=== PATIENT | male | born 1975 | race Caucasian/White ===

== ENCOUNTER 2018-11-24 13:03 | Inpatient (IN) | payer OTHER ==
[~2018-11-24] VITALS: Ht 289.6 cm; Wt 74.9 kg
--- NOTE | 2018-11-24 13:22 | NUR ---
PT SENT FROM [facility] FOR OPEN FX AND REQUESTING ORTHO CONSULT. INFORMED PT WE DO NOT HAVE ORTHO HERE. PT WOULD NEED TO GO TO [facility] OR [facility]. INQUIRED IF PT WISH TO STAY AT [facility]. PT VERBALIZED HE WILL GO TO [facility] OR [facility] INSTEAD. PT AMBULATED OUT OF ED WITH NAD.
[2018-11-24 13:47] VITALS: Ht 289.6 cm; Wt 74.9 kg
--- NOTE | 2018-11-24 14:02 | NUR ---
PT BIB SELF C/C LT INDEX FX WAS REFERRED FROM [facility] DR POWELL AT BEDSIDE TO [facility]
[2018-11-24 15:24] LABS: BASOPHIL % 0.3 % (0-2); PLATELET COUNT 212 x10^3mcL (130-400); RED CELL DISTRIBUTION WIDTH 12.8 % (11.5-14.5)
--- NOTE | 2018-11-24 15:25 | NUR ---
PT DENIES DISCOMFORT
[2018-11-24 15:29] LABS: CALCIUM 9.2 mg/dL (8.5-10.1); CHLORIDE SERUM 103 mmol/L (98-107); CREATININE SERUM 0.8 mg/dL (0.7-1.3); GFR1 > 60 mL/min; GLUCOSE SERUM 134 mg/dL (74-106); POTASSIUM SERUM 3.7 mmol/L (3.5-5.1); SODIUM SERUM 140 mmol/L (136-145)
[2018-11-24 15:34] LABS: ALBUMIN 4.1 g/dL (3.4-5.0); ALKALINE PHOSPHATASE 89 U/L (46-116); ALT/SGPT 33 U/L (16-63); AST/SGOT 13 U/L (15-37); BILIRUBIN TOTAL 0.42 mg/dL (0.20-1.00); TOTAL PROTEIN, SERUM 7.9 g/dL (6.4-8.2)
[2018-11-24 16:07] LABS: MAGNESIUM 1.8 mg/dL (1.8-2.4); PHOSPHOROUS 3.6 mg/dL (2.5-4.9)
--- NOTE | 2018-11-24 16:24 | NUR ---
PT ADMIT TO MS GAVE REPORT TO MARIA LUISA
--- NOTE | 2018-11-24 16:52 | NUR ---
PLEASE ENTER FULL NAMES OF SHODER FILLER/RN Patient data collected by (SHODER FILLER):ISRAEL ESTEBAN Assessment reviewed and completed by (RN):CROW PARHAM
[2018-11-24] MEDS ORDERED: METFORMIN HYDR500 M1 PO (17:31)
[2018-11-24 18:27] VITALS: BP 126/86
--- NOTE | 2018-11-24 18:56 | NUR ---
PT REPORTS PAIN 6/10 AFTER ADMINISTRATION OF NORCO. PT STABLE AT THIS TIME. US AT BEDSIDE. WILL CONTINUE TO MONITOR AND ENDORSE CARE TO SURGICAL FORCEPS FABRICATOR.
[2018-11-24 21:37] VITALS: BP 122/77
--- NOTE | 2018-11-24 21:42 | NUR ---
Awake and verbally responsive. No respiratory distress noted on room air. Denies n/v. Soreness to left hand but denies need for pain med at this time. Left hand with edema and advised to keep elevated. Dressing intact. NPO after midnight per Dr. Scruggs for possible surgery tomorrow. Will cont.to monitor. Call light within reach.
--- NOTE | 2018-11-25 04:23 | NUR ---
Afebrile. Remained NPO status for possible surgery today. Left hand elevated on pillow. (+)cms. In no apparent distress.
[2018-11-25 06:07] VITALS: BP 133/88
[2018-11-25 07:15] LABS: CALCIUM 8.4 mg/dL (8.5-10.1); CHLORIDE SERUM 105 mmol/L (98-107); CREATININE SERUM 0.7 mg/dL (0.7-1.3); GFR1 > 60 mL/min; GLUCOSE SERUM 137 mg/dL (74-106); POTASSIUM SERUM 3.7 mmol/L (3.5-5.1); SODIUM SERUM 142 mmol/L (136-145)
--- NOTE | 2018-11-25 07:15 | NUR ---
DR. GALVAN AT BEDSIDE WITH PT.
[2018-11-25 07:25] LABS: BASOPHIL % 0.4 % (0-2); PLATELET COUNT 195 x10^3mcL (130-400)
--- NOTE | 2018-11-25 07:30 | NUR ---
RECEIVED PT FROM PRODUCTION MACHINE SHOP SUPERVISOR RN. Sania/ADRY4. MED SURG. DENIES CHEST PAIN/PRESSURE. RESPIRATIONS EQUAL AND UNLABORED ON RA. DENIES SOB. PT C/O MILD PAIN 6/10 TO LEFT 2ND DIGIT. PT STATES PAIN IS TOLERABLE AT THIS TIME. DRESSING TO LEFT HAND, CDI, NO DRAINAGE NOTED. PT NPO SINCE MIDNIGHT. IV TO RAC PATENT AND INFUSING. NO REDNESS OR SWELLING NOTED. WILL CONTINUE TO MONITOR. CALL LIGHT IN REACH. BED IN LOWEST POSITION.
--- NOTE | 2018-11-25 07:35 | NUR ---
PT SITTING UP IN BED. OBTAINED CONSENT FOR SURGERY. PT PROVIDED CHG WIPES. UA NOT COLLECTED YET. PT GIVEN SPECIMEN CUP. WILL CONTIINUE TO MONITOR.
[2018-11-25 07:54] LABS: microscopic required? NO
[2018-11-25 08:06] LABS: UA SPECIFIC GRAVITY 1.025 (1.005-1.035); urine erythrocyte NEGATIVE (NEGATIVE)
[2018-11-25 08:24] LABS: AMPHETAMINE QUAL UR NONE DETECTED (See below)
--- NOTE | 2018-11-25 08:35 | NUR ---
PT SITTING UP IN BED. NO ACUTE RESP DISTRESS NOTED ON RA. PT REFUSED COLACE. PT STATES I DO NOT NEED THAT MEDICATION. IV TO RAC SALINE LOCKED. PT BEING TAKEN OFF FLOOR FOR PROCEDURE VIA GUERNEY.
--- NOTE | 2018-11-25 08:51 | NUR ---
REPORT GIVEN TO TICO LANG IN OR
[2018-11-25 09:25] VITALS: BP 137/82
--- NOTE | 2018-11-25 11:38 | NUR ---
RECEIVED REPORT FROM STACIE LANG IN OR. WILL CALL WITH UPDATES NEEDED.
--- NOTE | 2018-11-25 12:00 | NUR ---
RECEIVED PT FROM OR. TRANSPORTED VIA GUERNEY BY TICO LANG. DROWSY BUT AROUSABLE TO VOICE. PT DENIES ANY PAIN AT THIS TIME. IV TO RAC SALINE LOCKED. NO REDNESS OR SWELLING NOTED. VSS. DRESSING TO LEFT HAND, CDI. NO REDNESS OR DRAINAGE NOTED. WILL CONTINUE TO MONITOR. CALL LIGHT IN REACH. BED IN LOWEST POSITION.
--- NOTE | 2018-11-25 12:34 | NUR ---
PT SITTING UP IN BED. NO ACUTE RESP DISTRESS NOTED. PT DENIES ANY PAIN AT THIS TIME. IV SALINE LOCKED TO RAC. NO REDNESS OR SWELLING NOTED. BLOOD SUGAR WAS CHECKED 109. NO COVERAGE NEEDED. TAMIKO LANG CRATE BUILDER AT BEDSIDE. FAMILY AT BEDSIDE. WILL CONTINUE TO MONITOR. CALL LIGHT IN REACH. BED IN LOWEST POSITION.
[2018-11-25] MEDS ORDERED: MOT600 PO (16:26)
[2018-11-25] MEDS ORDERED: METFORMIN HYDR500 M1 PO (16:27)
--- NOTE | 2018-11-25 16:33 | NUR ---
PT IN BED RESTING. NO ACUTE RESP DISTRESS NOTED ON RA. RECEIVED DISCHARGE ORDERS. PT OKAY WITH BEING DISCHARGED TODAY. PT STATES WILL CALL FAMILY AND LET THEM KNOW. BLOOD SUGAR CHECKED WAS 140. NO COVERAGE NEEDED. PT DENIES ANY PAIN AT THIS TIME. DRESSING TO LEFT HAND CDI. NO REDNESS OR DRAINAGE NOTED. WILL CONTINUE TO MONITOR. CALL LIGHT IN REACH. BED IN LOWEST POSITION.
[2018-11-25 16:41] VITALS: BP 133/81
--- NOTE | 2018-11-25 17:36 | NUR ---
SPOKE WITH KATHY MAR LINE WALKER. PER KATHY MAR SHE WILL SCHEDULE PT APPOINTMENT TOMORROW AND WILL CALL PT TO INFORM HIM OF APPOINTMENT.
--- NOTE | 2018-11-25 17:59 | NUR ---
PT SITTING UP IN BED. NO ACUTE RESP DISTRESS NOTED . PT INFORMED DISCHARGE INSTRUCTIONS ARE AVAILABLE. PT EATING DINNER. GIVEN PO MEDS. TOLERATED WELL. PER DR. KEENAN GIVEN ANCEF PRIOR TO DISCHARGE. PT VERBALIZED UNDERSTANDING. WILL CONTINUE TO MONITOR. CALL LIGHT IN REACH. BED IN LOWEST POSITION.
--- NOTE | 2018-11-25 18:49 | NUR ---
PT STATES HIS WILL NOT BE AVAILABLE TO PICK HIM UP UNTIL 1930. PT DENIES ANY PAIN AT THIS TIME. PT ASKING FOR DOCTORS NOTE FOR WORK. SPOKE WITH DR. VALENZUELA. PER DR. VALENZUELA WILL WRITE A DOCTORS NOTE. PT STATES HE WILL LET NURSE KNOW WHEN HIS IS HERE. WILL ENDORSE TO JOURNAL CLERK RN. CALL LIGHT IN REACH. BED IN LOWEST POSITION.
--- NOTE | 2018-11-25 19:36 | NUR ---
DISCHARGE INSTRUCTION GIVEN TO SON AT BEDSIDE. SON TRANSLATED TO PT. PT DEMONSTRATED UNDERSTANDING. IV REMOVED FROM RAC. CATHETER INTACT. NO BLEEDING NOTED. PT ABLE TO AMBULATE. PT DISCHARGED HOME.
== END 2018-11-25 19:34 | disposition home or self-care (01) | DRG 513 ==
LOC: ED 13:03 → MU 15:46
PROVIDERS: Emergency Medicine; Neuromusculoskeletal Medicine, Sports Medicine; ADMIT Internal Medicine
PROC: 0LQ80ZZ Repair Left Hand Tendon, Open Approach (ICD-10-PCS; 2018-11-25)
PROC: 0PSV04Z Reposition Left Finger Phalanx with Internal Fixation Device, Open Approach (ICD-10-PCS; principal; 2018-11-25 09:15)
DX: S62.651B Nondisplaced fracture of middle phalanx of left index finger, initial encounter for open fracture (principal); S66.321A Laceration of extensor muscle, fascia and tendon of left index finger at wrist and hand level, initial encounter; E11.9 Type 2 diabetes mellitus without complications; Z79.84 Long term (current) use of oral hypoglycemic drugs; W31.89XA Contact with other specified machinery, initial encounter; Y93.89 Activity, other specified; Y92.63 Factory as the place of occurrence of the external cause; Z68.22 Body mass index [BMI] 22.0-22.9, adult
CPT/HCPCS: 82962; C1713; G0378; J0690; J2250; J2704; J3010; J3490; J7030; Q0092